=== PATIENT | male | born 1955 | race Caucasian/White ===

== ENCOUNTER 2020-06-08 12:24 | Outpatient (REF) | payer OTHER, SELFPAY ==
[2020-06-08 12:52] LABS: COVID-19 Test Positive (Negative)
== END 2020-06-08 12:25 | disposition home or self-care (01) ==
LOC: HO.LAB 12:24
PROVIDERS: Visit Provider Internal Medicine
DX: Z20.828 Contact with and (suspected) exposure to other viral communicable diseases (principal)
CPT/HCPCS: 87635

== ENCOUNTER 2020-06-22 10:20 | Outpatient (REF) | payer OTHER, SELFPAY | END 2020-06-22 10:21 | disposition home or self-care (01) | LOC: HO.LAB 10:20 | PROVIDERS: Visit Provider Internal Medicine | DX: Z20.828 Contact with and (suspected) exposure to other viral communicable diseases (principal) | CPT/HCPCS: 87635 ==

== ENCOUNTER 2020-07-27 11:23 | Outpatient (REF) | payer OTHER, SELFPAY | END 2020-07-27 11:24 | disposition home or self-care (01) | LOC: HO.LAB 11:23 | PROVIDERS: Visit Provider Internal Medicine | DX: Z20.828 Contact with and (suspected) exposure to other viral communicable diseases (principal) | CPT/HCPCS: C9803; U0003 ==

== ENCOUNTER 2021-09-16 06:53 | Inpatient (IN) | payer OTHER, SELFPAY ==
[2021-09-16] VITALS (14 sets, daily range): BP systolic 139–181; BP diastolic 76–107; PULSE 56–84; RESP 13–18; TEMP 36.8–37.2; O2SAT 95–100; BMI 27.4; BMI 29.8
--- NOTE | ~2021-09-16 | XR_ITS ---
EXAMINATION: XR CHEST CLINICAL INFORMATION: Right-sided chest pain COMPARISON: None TECHNIQUE: Frontal view of the chest was obtained. FINDINGS: The cardiac and mediastinal contours are normal. The lungs are clear. There is no pleural effusion or pneumothorax. There are surgical tacks or anchors projecting over the right humeral head. Bony structures are otherwise unremarkable. XR/XR chest 1V IMPRESSION: No evidence for acute disease in the chest.
--- NOTE | 2021-09-16 07:08 | ECG_ITS ---
Test Reason : chest pain Blood Pressure : / mmHG Vent. Rate : 053 BPM Atrial Rate : 053 BPM P-R Int : 186 ms QRS Dur : 086 ms QT Int : 402 ms P-R-T Axes : 041 -02 060 degrees QTc Int : 377 ms Sinus bradycardia Otherwise normal ECG When compared with ECG of 16-SEP-2021 07:11, No significant change was found Referred By: [facility] Electronically Signed By:DELICIA MEZA MD
[2021-09-16 07:31] LABS: MANUAL DIFF FLAG NO
[2021-09-16 07:36] LABS: Basophils Percent Auto 0.5 % (0-2); Eosinophils Absolute Auto 0.1 X10*3/uL (0.0-0.4); Eosinophils Percent Auto 1.1 % (0-4); Hematocrit 39.3 % (42.0-52.0); Hemoglobin 12.5 g/dl (14.0-18.0); Imm Gran Abs Auto 0.03 X10*3/uL (0.00-0.03); Imm Gran Pct Auto 0.4 % (0.0-0.4); Lymphocytes Absolute Auto 1.1 X10*3/uL (1.2-4.9); Lymphocytes Percent Auto 12.4 % (20-40); Mean Corpuscular HGB Conc 31.8 g/dl (31.0-36.0); Mean Corpuscular Hemoglobin 28.3 pg (27.0-33.0); Mean Corpuscular Volume 89.1 fL (80.0-98.0); Mean Platelet Volume 10.8 fL (9.4-12.4); Monocytes Absolute Auto 0.3 X10*3/uL (0.1-1.2); Monocytes Percent Auto 3.8 % (2-11); Neutrophils Absolute Auto 6.9 x10*3/uL (2.0-8.3); Neutrophils Percent Auto 81.8 % (45-73); Platelet Count 195 X10*3/uL (160-400); Red Blood Count 4.41 X10*6/uL (4.60-5.80); White Blood Count 8.4 X10*3/uL (4.8-10.8)
--- NOTE | 2021-09-16 07:46 | ED_ITS ---
HPI - Chest Pain General Chief Complaint: Chest Pain Stated Complaint: Headaches/body pain Time Seen by Provider: 09/16/21 07:46 Source: patient Mode of arrival: ambulatory Limitations: no limitations History of Present Illness HPI narrative: Patient with no known coronary artery disease at [facility] in came as he woke up from sleep at 04:00 with right-sided chest pain radiating to right arm feels heavy and tight no diaphoresis no nausea no vomiting no shortness of breath no cough patient never had similar pain in the past pain is coming and going Related Data Home Medications Medication Instructions Recorded Confirmed ascorbic acid (vitamin C) 500 mg 500 mg PO DAILY 09/16/21 09/16/21 tablet Allergies Allergy/AdvReac Type Severity Reaction Status Date / Time No Known Allergies Allergy Unverified 05/12/20 19:53 [No Known Allergies*] Review of Systems Review of Systems: Yes all other systems are reviewed and are negative [facility] Past Medical History Medical History (Updated 09/16/21 @ 14:50 by Jesús Almaraz MD) Depression with anxiety GERD (gastroesophageal reflux disease) Social History Social History Alcohol intake: current Patient Tobacco Use Status: Never used Tobacco Use of substances other than those prescribed or required for medical reasons: No Advance Directives: No Advance Directives Information Provided: No Physical Exam Vital Signs: Vital Signs: Last Vital Signs Temp 98.4 F 09/16/21 07:02 Pulse 84 09/16/21 11:59 Resp 18 09/16/21 11:59 BP 155/89 H 09/16/21 11:59 Pulse Ox 98 09/16/21 11:59 BMI result Body Mass Index 29.8 Appearance: Alert. Oriented X3. No acute distress. Eyes: No pallor or icterus ENT: Pharynx normal. Oral Mucosa moist Neck: Normal inspection. Neck supple. CVS: Normal heart rate and rhythm. Pulses normal. Respiratory: No respiratory distress. Equal air entry bilateral, no wheezing/rales/rhonchi Abdomen: Soft and nontender. Bowel sounds are present, no mass palpable, Skin: Skin warm and dry. Normal skin color. Normal skin turgor. Extremities: No lower extremity edema. No calf tenderness Neuro: Oriented X 3. No motor deficit. MDM - Chest Pain MDM Narrative Medical decision making narrative: 830am patient with right-sided chest pain with no acute EKG changes on arrival patient's blood pressure was elevated to 177/107 with no prior history. Patient was given nitroglycerin and Lopressor feeling much better now had elevated troponin will start on heparin 11:08 patient chest pain-free repeat troponin elevated to 2307 already on heparin drip repeat EKG without any acute ischemic changes case discussed with food service coordinator Dr. Chou will evaluate the patient and decide Lab Data Attestation: I reviewed the patient's lab results. Result diagrams: 09/16/21 07:26 09/16/21 14:19 Labs: Lab Results 09/16/21 09/16/21 09/16/21 Range/Units 07:26 07:26 07:26 WBC 8.4 (4.8-10.8) X10*3/uL RBC 4.41 L (4.60-5.80) X10*6/uL Hgb 12.5 L (14.0-18.0) g/dl Hct 39.3 L (42.0-52.0) % MCV 89.1 (80.0-98.0) fL MCH 28.3 (27.0-33.0) pg MCHC 31.8 (31.0-36.0) g/dl RDW 14.0 (11.0-16.0) % Plt Count 195 (160-400) X10*3/uL MPV 10.8 (9.4-12.4) fL Immature Gran % (Auto) 0.4 (0.0-0.4) % Neut % (Auto) 81.8 H (45-73) % Lymph % (Auto) 12.4 L (20-40) % Louisa % (Auto) 3.8 (2-11) % Eos % (Auto) 1.1 (0-4) % Baso % (Auto) 0.5 (0-2) % Lymph # (Auto) 1.1 L (1.2-4.9) X10*3/uL Louisa # (Auto) 0.3 (0.1-1.2) X10*3/uL Eos # (Auto) 0.1 (0.0-0.4) X10*3/uL Baso # (Auto) 0.0 (0.0-0.2) X10*3/uL Abs Immat Gran (auto) 0.03 (0.00-0.03) X10*3/uL Absolute Neuts (auto) 6.9 (2.0-8.3) x10*3/uL Absolute Nucleated RBC 0.000 (0.0-0.012) X10*3/uL Nucleated RBC % (auto) 0.0 (0.0-0.2) /100WBC PT (9.9-13.0) SEC INR (0.9-1.1) APTT (24.1-38.0) SEC D-Dimer High Sensitivty NG/ML Sodium 141 (135-145) mmol/L Potassium 4.1 (3.3-5.1) mmol/L Chloride 106 (96-108) mmol/L Carbon Dioxide 26 (22-29) mmol/L Anion Gap 13 (12-20) BUN 14 (9-16) mg/dL Creatinine 0.90 (0.5-1.4) mg/dL Estim Creat Clear Calc 77.8 Estimated GFR > 60 Random Glucose 117 H (60-115) mg/dL Calcium 9.4 (8.4-10.2) mg/dL Total Bilirubin 0.5 (0.0-1.0) mg/dL AST 31 (5-37) U/L ALT 41 H (0-40) U/L Alkaline Phosphatase 66 (39-117) U/L Troponin I High Sens 117.1 H* (<3.5-35.0) ng/L B-Natriuretic Peptide (<100) pg/mL Total Protein 7.5 (6.5-8.0) g/dL Albumin 4.4 (3.5-5.0) g/dL COVID-19 (OBI) (Negative) COVID-19 Clin Com 09/16/21 09/16/21 09/16/21 Range/Units 07:26 07:26 08:19 WBC (4.8-10.8) X10*3/uL RBC (4.60-5.80) X10*6/uL Hgb (14.0-18.0) g/dl Hct (42.0-52.0) % MCV (80.0-98.0) fL MCH (27.0-33.0) pg MCHC (31.0-36.0) g/dl RDW (11.0-16.0) % Plt Count (160-400) X10*3/uL MPV (9.4-12.4) fL Immature Gran % (Auto) (0.0-0.4) % Neut % (Auto) (45-73) % Lymph % (Auto) (20-40) % Louisa % (Auto) (2-11) % Eos % (Auto) (0-4) % Baso % (Auto) (0-2) % Lymph # (Auto) (1.2-4.9) X10*3/uL Louisa # (Auto) (0.1-1.2) X10*3/uL Eos # (Auto) (0.0-0.4) X10*3/uL Baso # (Auto) (0.0-0.2) X10*3/uL Abs Immat Gran (auto) (0.00-0.03) X10*3/uL Absolute Neuts (auto) (2.0-8.3) x10*3/uL Absolute Nucleated RBC (0.0-0.012) X10*3/uL Nucleated RBC % (auto) (0.0-0.2) /100WBC PT 11.4 (9.9-13.0) SEC INR 1.0 (0.9-1.1) APTT 31.6 (24.1-38.0) SEC D-Dimer High Sensitivty < 150 NG/ML Sodium (135-145) mmol/L Potassium (3.3-5.1) mmol/L Chloride (96-108) mmol/L Carbon Dioxide (22-29) mmol/L Anion Gap (12-20) BUN (9-16) mg/dL Creatinine (0.5-1.4) mg/dL Estim Creat Clear Calc Estimated GFR Random Glucose (60-115) mg/dL Calcium (8.4-10.2) mg/dL Total Bilirubin (0.0-1.0) mg/dL AST (5-37) U/L ALT (0-40) U/L Alkaline Phosphatase (39-117) U/L Troponin I High Sens (<3.5-35.0) ng/L B-Natriuretic Peptide 19 (<100) pg/mL Total Protein (6.5-8.0) g/dL Albumin (3.5-5.0) g/dL COVID-19 (OBI) Negative (Negative) COVID-19 Clin Com See Note 09/16/21 Range/Units 10:15 WBC (4.8-10.8) X10*3/uL RBC (4.60-5.80) X10*6/uL Hgb (14.0-18.0) g/dl Hct (42.0-52.0) % MCV (80.0-98.0) fL MCH (27.0-33.0) pg MCHC (31.0-36.0) g/dl RDW (11.0-16.0) % Plt Count (160-400) X10*3/uL MPV (9.4-12.4) fL Immature Gran % (Auto) (0.0-0.4) % Neut % (Auto) (45-73) % Lymph % (Auto) (20-40) % Louis[place] % (Auto) (2-11) % Eos % (Auto) (0-4) % Baso % (Auto) (0-2) % Lymph # (Auto) (1.2-4.9) X10*3/uL [place] # (Auto) (0.1-1.2) X10*3/uL Eos # (Auto) (0.0-0.4) X10*3/uL Baso # (Auto) (0.0-0.2) X10*3/uL Abs Immat Gran (auto) (0.00-0.03) X10*3/uL Absolute Neuts (auto) (2.0-8.3) x10*3/uL Absolute Nucleated RBC (0.0-0.012) X10*3/uL Nucleated RBC % (auto) (0.0-0.2) /100WBC PT (9.9-13.0) SEC INR (0.9-1.1) APTT (24.1-38.0) SEC D-Dimer High Sensitivty NG/ML Sodium (135-145) mmol/L Potassium (3.3-5.1) mmol/L Chloride (96-108) mmol/L Carbon Dioxide (22-29) mmol/L Anion Gap (12-20) BUN (9-16) mg/dL Creatinine (0.5-1.4) mg/dL Estim Creat Clear Calc Estimated GFR Random Glucose (60-115) mg/dL Calcium (8.4-10.2) mg/dL Total Bilirubin (0.0-1.0) mg/dL AST (5-37) U/L ALT (0-40) U/L Alkaline Phosphatase (39-117) U/L Troponin I High Sens 2307.2 H* D (<3.5-35.0) ng/L B-Natriuretic Peptide (<100) pg/mL Total Protein (6.5-8.0) g/dL Albumin (3.5-5.0) g/dL COVID-19 (OBI) (Negative) COVID-19 Clin Com ECG Data ECG #1: Attestation: I personally reviewed and interpreted this ECG as follows: Interpretation: Normal sinus rhythm heart rate 73 beats per minute normal interval normal axis no acute STT wave changes no acute ischemia Critical Care Time Critical Care Time Critical Care Time: Yes Total Critical Care Time: 38 Attestation: I spent 38 minutes of critical care, with interventions, assessments, speaking to patient, consultants, and family. Discharge Plan Discharge Clinical Impression: NSTEMI (non-ST elevated myocardial infarction) Patient Disposition: Admitted As Inpatient
[2021-09-16 07:53] LABS: Alanine Aminotransferase 41 U/L (0-40); Albumin Level 4.4 g/dL (3.5-5.0); Alkaline Phosphatase 66 U/L (39-117); Anion Gap 13 (12-20); Aspartate Amino Transferase 31 U/L (5-37); Bilirubin Total 0.5 mg/dL (0.0-1.0); Blood Urea Nitrogen 14 mg/dL (9-16); Calcium 9.4 mg/dL (8.4-10.2); Carbon Dioxide 26 mmol/L (22-29); Chloride 106 mmol/L (96-108); Creatinine Clr Calc Pharmacy 77.8; Estimated Glomerular Filt Rate > 60; Glucose Random 117 mg/dL (60-115); Potassium 4.1 mmol/L (3.3-5.1); Sodium 141 mmol/L (135-145); Total Protein 7.5 g/dL (6.5-8.0)
[2021-09-16 07:58] LABS: B Type Natriuretic Peptide 19 pg/mL (<100)
[2021-09-16 08:07] LABS: Troponin-I High Sensitivity 117.1 ng/L (<3.5-35.0)
[2021-09-16] MEDS: Metoprolol Tartrate 5 MG/5 ML VIAL IVPUSH (08:24)
[2021-09-16] MEDS: Aspirin 81 MG TAB.CHEW 324 MG PO (08:24)
--- NOTE | 2021-09-16 08:27 | PC.NURSE ---
resting quietly. den ies CP at this time. SR on monitopr. no ectopy. skin pwd. denies SOB/diaphoresis, dizziness at home. also denies hx of HTN or need for HTN meds.
[2021-09-16 08:33] LABS: Prothrombin Time 11.4 SEC (9.9-13.0)
[2021-09-16 08:35] LABS: Partial Thromboplastin Time 31.6 SEC (24.1-38.0)
[2021-09-16] MEDS: Nitroglycerin 2 % Oint 1 GM Packet 1 INCH TRANSDERMA (08:35)
[2021-09-16 08:52] LABS: D Dimer High Sensitivity < 150 NG/ML
[2021-09-16] MEDS: Heparin Sodium,Porcine 5,000 UNIT/ML VIAL 5000 UNIT IVPUSH (09:06)
--- NOTE | 2021-09-16 09:08 | PC.NURSE ---
reports diminishing CP and slight headache. axox3. skin pwd. nsr on monitor
[2021-09-16] MEDS: Heparin Sodium,Porcine/1/2NS 25,000 UNIT/250 ML IV.SOLN 10 UNIT IVCONT (09:20)
[2021-09-16] MEDS: Nitroglycerin 0.4 MG TAB.SUBL SUBLINGUAL (09:23)
[2021-09-16 09:32] LABS: COVID-19 Test Negative (Negative)
--- NOTE | 2021-09-16 09:59 | PC.NURSE ---
pt denies cp, continues to have small headache. skin pwd. aware of need for admission. nsr on monitor.
--- NOTE | 2021-09-16 11:04 | ECG_ITS ---
Test Reason : CHESTPAIN Blood Pressure : / mmHG Vent. Rate : 073 BPM Atrial Rate : 073 BPM P-R Int : 168 ms QRS Dur : 094 ms QT Int : 366 ms P-R-T Axes : 052 002 039 degrees QTc Int : 403 ms Normal sinus rhythm Normal ECG No previous ECGs available Referred By: Gary Bhatia Electronically Signed By:Gelacio Chou
--- NOTE | 2021-09-16 11:14 | PC.NURSE ---
doc andrew at bedside. pt continues to denies CP. SB on monitor at this time. no ectopy
--- NOTE | 2021-09-16 11:17 | PC.NURSE ---
plan for admission and eventual transfer to [facility] for cardiac cath early next week.
[2021-09-16] MEDS: Metoprolol Tartrate 25 MG TABLET PO ×2 (11:57→20:57)
[2021-09-16] MEDS: Acetaminophen 325 MG TABLET 650 MG PO (11:57)
[2021-09-16] MEDS: Clopidogrel Bisulfate 300 MG TABLET PO (11:58)
--- NOTE | 2021-09-16 12:08 | PHA.MEDREC ---
Pharmacy Consult ? Medication Reconciliation Pharmacy has completed the medication reconciliation. Spoke with patient via block mechanic. He stated he used to take medication for cholesterol and acid reflux but does not anymore. He states he only takes Vitamin C. He is not taking bupropion or any other medications because he does not believe he has any illnesses.
--- NOTE | 2021-09-16 13:24 | PM.IMHP ---
History of Present Illness Date of Service: 09/16/21 Chief Complaint: Chest pain 66 year male with no known chronic illnesses such as HTN, diabetes or CAD. He has HLD and takes Simvastatin. He woke up around 4 am with excruciating right sided chest pain, radiating to the right shoulder. No associated shortness of breath, no n/v or daphoressis and persisted until arrived in ED. work ECG showed no acute changes, initial troponin was 117 and repeat was 2017. Pain has improved with after nitor but now has headache. He is medically being treated with ASA, heparin, metoprolol and cardiology will arrange for cardach cath at a later time. He is otherwise hemodynamically stable. Vaccinated for covid. Review of Systems Review of Systems: Gen: no fever Resp: no sob, no cough CV: no chest, no BELLE, no leg edema GI: No n/v, no abd pain Neuro: No confusion, headache Yes all other systems are reviewed and are negative [facility] Medical History (Updated 09/16/21 @ 13:32 by Gary Bhatia MD) Depression with anxiety GERD (gastroesophageal reflux disease) Pertinent family history: He reports no family of CAD Social History Alcohol intake: current Patient Tobacco Use Status: Never used Tobacco Use of substances other than those prescribed or required for medical reasons: No Advance Directives: No Advance Directives Information Provided: No Meds Allergies Allergy/AdvReac Type Severity Reaction Status Date / Time No Known Allergies Allergy Unverified 05/12/20 19:53 [No Known Allergies*] Active Medications: Current Medications Heparin Sodium (Porcine) (Heparin Sodium,Porcine 5,000 Unit/Ml Vial) 6,700 unit IVPUSH PROTOCOL BOLUS PRN; Protocol PRN Reason: 80 unit/kg - Heparin Protocol Heparin Sodium (Porcine) (Heparin Sodium,Porcine 5,000 Unit/Ml Vial) 3,400 unit IVPUSH PROTOCOL BOLUS PRN; Protocol PRN Reason: 40 unit/kg - Heparin Protocol Heparin Sodium/Sodium Chloride () 25,000 unit in 250 mls @ 0 mls/hr IVCONT .Q0M [facility]; Protocol Last Admin: 09/16/21 09:20 Dose: 12.97 units/kg/hr, 10 mls/hr Documented by: Pharmacy Consult (Consult Rx Perform Med Rec) 1 each MISCELLANE ONCE PRN PRN Reason: Consult order Home Medications Medication Instructions Recorded Confirmed Last Taken Type ascorbic acid (vitamin C) 500 mg 500 mg PO DAILY 09/16/21 09/16/21 Unknown History tablet Physical Exam Vital Signs and Narrative: Vital Signs: Last Vital Signs Temp 98.4 F 09/16/21 07:02 Pulse 84 09/16/21 11:59 Resp 18 09/16/21 11:59 BP 155/89 H 09/16/21 11:59 Pulse Ox 98 09/16/21 11:59 BMI result Body Mass Index 29.8 Results Labs CBC and Chem 7: 09/16/21 07:26 09/16/21 07:26 Labs: Laboratory Results - last 24 hr 09/16/21 09/16/21 09/16/21 07:26 07:26 07:26 MCV 89.1 MCH 28.3 MCHC 31.8 RDW 14.0 Plt Count 195 MPV 10.8 Immature Gran % (Auto) 0.4 Neut % (Auto) 81.8 H Lymph % (Auto) 12.4 L Payne % (Auto) 3.8 Eos % (Auto) 1.1 Baso % (Auto) 0.5 Lymph # (Auto) 1.1 L Payne # (Auto) 0.3 Eos # (Auto) 0.1 Baso # (Auto) 0.0 Abs Immat Gran (auto) 0.03 Absolute Neuts (auto) 6.9 Absolute Nucleated RBC 0.000 Nucleated RBC % (auto) 0.0 PT INR APTT D-Dimer High Sensitivty Anion Gap 13 Estim Creat Clear Calc 77.8 Estimated GFR > 60 Random Glucose 117 H Calcium 9.4 Total Bilirubin 0.5 AST 31 ALT 41 H Alkaline Phosphatase 66 Troponin I High Sens 117.1 H* B-Natriuretic Peptide Total Protein 7.5 Albumin 4.4 COVID-19 (OBI) COVID-19 Clin Com 09/16/21 09/16/21 09/16/21 07:26 07:26 08:19 MCV MCH MCHC RDW Plt Count MPV Immature Gran % (Auto) Neut % (Auto) Lymph % (Auto) Payne % (Auto) Eos % (Auto) Baso % (Auto) Lymph # (Auto) Payne # (Auto) Eos # (Auto) Baso # (Auto) Abs Immat Gran (auto) Absolute Neuts (auto) Absolute Nucleated RBC Nucleated RBC % (auto) PT 11.4 INR 1.0 APTT 31.6 D-Dimer High Sensitivty < 150 Anion Gap Estim Creat Clear Calc Estimated GFR Random Glucose Calcium Total Bilirubin AST ALT Alkaline Phosphatase Troponin I High Sens B-Natriuretic Peptide 19 Total Protein Albumin COVID-19 (OBI) Negative COVID-19 Clin Com See Note 09/16/21 10:15 MCV MCH MCHC RDW Plt Count MPV Immature Gran % (Auto) Neut % (Auto) Lymph % (Auto) Payne % (Auto) Eos % (Auto) Baso % (Auto) Lymph # (Auto) Payne # (Auto) Eos # (Auto) Baso # (Auto) Abs Immat Gran (auto) Absolute Neuts (auto) Absolute Nucleated RBC Nucleated RBC % (auto) PT INR APTT D-Dimer High Sensitivty Anion Gap Estim Creat Clear Calc Estimated GFR Random Glucose Calcium Total Bilirubin AST ALT Alkaline Phosphatase Troponin I High Sens 2307.2 H* D B-Natriuretic Peptide Total Protein Albumin COVID-19 (OBI) COVID-19 Clin Com Imaging Radiologist's Impressions: Impressions Chest X-Ray 09/16/21 09:50 IMPRESSION: No evidence for acute disease in the chest. Assessment and Plan (1) NSTEMI (non-ST elevated myocardial infarction): Status: Acute 66 year old male with HLD here with NSTEMI manifested by chest pain and elevated cardiac troponin. NSTEMI--Medical management with IV heparin, ASA, Beta yo, stain and BP control. Further investingation with echo on Saturday and likely transfer to [facility] for cardiac cath. Headache likely effect of Nitro--APAP HLD--previously on Simvastatin and will change to Lipitor 80 GERD--continue omeprazol Full code, heparin for DVT prophylaxis, care discussed with him via emergency department clinician Quality Stroke Does the patient have a stroke diagnosis?: No VTE Prior VTE?: No VTE Risk Level:: Medical - moderate - high VTE Device Contraindication: Treatment Not Indicated VTE Drug Contraindication: N/A - Med Ordered
[2021-09-16 14:43] LABS: Anion Gap 12 (12-20); Blood Urea Nitrogen 15 mg/dL (9-16); Calcium 9.4 mg/dL (8.4-10.2); Carbon Dioxide 26 mmol/L (22-29); Chloride 106 mmol/L (96-108); Cholesterol 230 mg/dL; Creatinine Clr Calc Pharmacy 82.7; Estimated Glomerular Filt Rate > 60; Glucose Random 137 mg/dL (60-115); HDL Cholesterol 43 mg/dL; LDL Cholesterol Calculated 166 mg/dl; Potassium 4.6 mmol/L (3.3-5.1); Sodium 139 mmol/L (135-145); Triglycerides 108 mg/dL
[2021-09-16 15:33] LABS: PTT Heparin Drip 78.9 SEC (53-77.9)
[2021-09-16 15:49] LABS: Hematocrit 35.1 % (42.0-52.0); Hemoglobin 11.5 g/dl (14.0-18.0); Mean Corpuscular HGB Conc 32.8 g/dl (31.0-36.0); Mean Corpuscular Volume 88.6 fL (80.0-98.0); Mean Platelet Volume 11.3 fL (9.4-12.4); Platelet Count 195 X10*3/uL (160-400); Red Blood Count 3.96 X10*6/uL (4.60-5.80); Red Cell Distribution Width 14.1 % (11.0-16.0)
--- NOTE | 2021-09-16 15:52 | PC.NURSE ---
pt continues to denie CP. headache persists. skin pwd.
--- NOTE | 2021-09-16 16:07 | ECG_ITS ---
Test Reason : elevated trop Blood Pressure : / mmHG Vent. Rate : 057 BPM Atrial Rate : 057 BPM P-R Int : 184 ms QRS Dur : 086 ms QT Int : 402 ms P-R-T Axes : 039 012 081 degrees QTc Int : 391 ms Sinus bradycardia Otherwise normal ECG When compared with ECG of 16-SEP-2021 07:11, No significant change was found Referred By: Gary Jackson Electronically Signed By:Gelacio Chou
--- NOTE | 2021-09-16 16:47 | P.CONCA_ITS ---
History of Present Illness History of Present Illness Date of Service: 09/16/21 Requesting physician: Jesús Almaraz Chief complaint: NSTEMI Narrative: Pleasant 66 gentleman who is presenting with chest pain. He had pressure-like right-sided chest pain and back discomfort which happen at nighttime. He has not had similar chest pain before. With this symptom sent to [facility]. He ruled in for NSTEMI. He was pain-free at the time he was seen. 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 No bleeding issues previously. Was started on heparin drip already. Was given aspirin already. No diabetes or bleeding issues in the past. [facility] Past Medical History Medical History (Updated 09/16/21 @ 14:50 by Jesús Almaraz MD) Depression with anxiety GERD (gastroesophageal reflux disease) Social History Social History Alcohol intake: current Patient Tobacco Use Status: Never used Tobacco Use of substances other than those prescribed or required for medical reasons: No Advance Directives: No Advance Directives Information Provided: No Meds Allergies Allergy/AdvReac Type Severity Reaction Status Date / Time No Known Allergies Allergy Unverified 05/12/20 19:53 [No Known Allergies*] Active Medications: Current Medications Acetaminophen (Acetaminophen 325 Mg Tablet) 650 mg PO Q6H PRN PRN Reason: Pain, Mild (Pain Scale 1-3) Ascorbic Acid (Ascorbic Acid 500 Mg Tablet) 500 mg PO DAILY [facility] Aspirin (Aspirin 81 Mg Tab.Chew) 81 mg PO DAILY [facility] Atorvastatin Calcium (Atorvastatin Calcium 80 Mg Tablet) 80 mg PO BEDTIME [facility] Heparin Sodium (Porcine) (Heparin Sodium,Porcine 5,000 Unit/Ml Vial) 6,700 unit IVPUSH PROTOCOL BOLUS PRN; Protocol PRN Reason: 80 unit/kg - Heparin Protocol Heparin Sodium (Porcine) (Heparin Sodium,Porcine 5,000 Unit/Ml Vial) 3,400 unit IVPUSH PROTOCOL BOLUS PRN; Protocol PRN Reason: 40 unit/kg - Heparin Protocol Heparin Sodium/Sodium Chloride () 25,000 unit in 250 mls @ 0 mls/hr IVCONT .Q0M [facility]; Protocol Last Titration: 09/16/21 15:46 Dose: 10.97 units/kg/hr, 9.21 mls/hr Documented by: Magnesium Hydroxide (Milk Of Magnesia 30 Ml Oral.Susp) 30 ml PO DAILY PRN PRN Reason: Constipation Melatonin (Melatonin 3 Mg Tablet) 6 mg PO BEDTIME PRN PRN Reason: Insomnia Metoprolol Tartrate (Metoprolol Tartrate 25 Mg Tablet) 25 mg PO BID NITHYA; Prot ocol Ondansetron HCl (Ondansetron Hcl 4 Mg/2 Ml Vial) 4 mg IVPUSH Q8H PRN PRN Reason: Nausea and Vomiting Oxycodone HCl (Oxycodone Hcl Immed Release 5 Mg Tablet) 5 mg PO Q6H PRN PRN Reason: Pain, Severe (Pain Scale 7-10) Pharmacy Consult (Consult Rx Perform Med Rec) 1 each MISCELLANE ONCE PRN PRN Reason: Consult order Sodium Chloride (0.9 % Sodium Chloride Flush 3 Ml Syringe) 3 ml IVFLUSH QSHIFT [facility] Last Admin: 09/16/21 15:43 Dose: Not Given Documented by: Home Medications Medication Instructions Recorded Confirmed Last Taken Type ascorbic acid (vitamin C) 500 mg 500 mg PO DAILY 09/16/21 09/16/21 Unknown History tablet Physical Exam Vital Signs: Vital Signs: Last Vital Signs Temp 98.4 F 09/16/21 15:19 Pulse 68 09/16/21 15:19 Resp 17 09/16/21 15:19 BP 139/85 09/16/21 15:19 Pulse Ox 98 09/16/21 15:19 BMI result Body Mass Index 29.8 GENERAL APPEARANCE: in no acute distress, pleasant. NECK: no carotid bruit, no jugular venous distention. SKIN: no suspicious lesions, warm and dry. HEART: no murmurs, regular rate and rhythm. LUNGS: clear to auscultation bilaterally. ABDOMEN: soft, nontender. EXTREMITIES: no edema. PERIPHERAL PULSES: equal. NEUROLOGIC: No gross deficits, AAO X 3 Objective Labs and Meds Result diagrams: 09/16/21 15:18 09/16/21 14:19 Lab results: Laboratory Results - last 24 hr 09/16/21 09/16/21 09/16/21 07:26 07:26 07:26 WBC 8.4 RBC 4.41 L Hgb 12.5 L Hct 39.3 L MCV 89.1 MCH 28.3 MCHC 31.8 RDW 14.0 Plt Count 195 MPV 10.8 Immature Gran % (Auto) 0.4 Neut % (Auto) 81.8 H Lymph % (Auto) 12.4 L [place] % (Auto) 3.8 Eos % (Auto) 1.1 Baso % (Auto) 0.5 Lymph # (Auto) 1.1 L [place] # (Auto) 0.3 Eos # (Auto) 0.1 Baso # (Auto) 0.0 Abs Immat Gran (auto) 0.03 Absolute Neuts (auto) 6.9 Absolute Nucleated RBC 0.000 Nucleated RBC % (auto) 0.0 PT INR APTT PTT (Heparin Protocol) D-Dimer High Sensitivty Sodium 141 Potassium 4.1 Chloride 106 Carbon Dioxide 26 Anion Gap 13 BUN 14 Creatinine 0.90 Estim Creat Clear Calc 77.8 Estimated GFR > 60 Random Glucose 117 H Calcium 9.4 Total Bilirubin 0.5 AST 31 ALT 41 H Alkaline Phosphatase 66 Troponin I High Sens 117.1 H* B-Natriuretic Peptide Total Protein 7.5 Albumin 4.4 Triglycerides Cholesterol LDL Cholesterol, Calc HDL Cholesterol COVID-19 (OBI) COVID-19 Clin Com 09/16/21 09/16/21 09/16/21 07:26 07:26 08:19 WBC RBC Hgb Hct MCV MCH MCHC RDW Plt Count MPV Immature Gran % (Auto) Neut % (Auto) Lymph % (Auto) [place] % (Auto) Eos % (Auto) Baso % (Auto) Lymph # (Auto) [place] # (Auto) Eos # (Auto) Baso # (Auto) Abs Immat Gran (auto) Absolute Neuts (auto) Absolute Nucleated RBC Nucleated RBC % (auto) PT 11.4 INR 1.0 APTT 31.6 PTT (Heparin Protocol) D-Dimer High Sensitivty < 150 Sodium Potassium Chloride Carbon Dioxide Anion Gap BUN Creatinine Estim Creat Clear Calc Estimated GFR Random Glucose Calcium Total Bilirubin AST ALT Alkaline Phosphatase Troponin I High Sens B-Natriuretic Peptide 19 Total Protein Albumin Triglycerides Cholesterol LDL Cholesterol, Calc HDL Cholesterol COVID-19 (OBI) Negative COVID-19 Clin Com See Note 09/16/21 09/16/21 09/16/21 10:15 14:19 14:19 WBC RBC Hgb Hct MCV MCH MCHC RDW Plt Count MPV Immature Gran % (Auto) Neut % (Auto) Lymph % (Auto) [place] % (Auto) Eos % (Auto) Baso % (Auto) Lymph # (Auto) [place] # (Auto) Eos # (Auto) Baso # (Auto) Abs Immat Gran (auto) Absolute Neuts (auto) Absolute Nucleated RBC Nucleated RBC % (auto) PT INR APTT PTT (Heparin Protocol) D-Dimer High Sensitivty Sodium 139 Potassium 4.6 Chloride 106 Carbon Dioxide 26 Anion Gap 12 BUN 15 Creatinine 0.88 Estim Creat Clear Calc 82.7 Estimated GFR > 60 Random Glucose 137 H Calcium 9.4 Total Bilirubin AST ALT Alkaline Phosphatase Troponin I High Sens 2307.2 H* D 93876.6 H* D B-Natriuretic Peptide Total Protein Albumin Triglycerides 108 Cholesterol 230 LDL Cholesterol, Calc 166 HDL Cholesterol 43 COVID-19 (OBI) COVID-19 Silent Communication 09/16/21 09/16/21 15:18 15:18 WBC 8.0 RBC 3.96 L Hgb 11.5 L Hct 35.1 L MCV 88.6 MCH 29.0 MCHC 32.8 RDW 14.1 Plt Count 195 MPV 11.3 Immature Gran % (Auto) Neut % (Auto) Lymph % (Auto) [place] % (Auto) Eos % (Auto) Baso % (Auto) Lymph # (Auto) [place] # (Auto) Eos # (Auto) Baso # (Auto) Abs Immat Gran (auto) Absolute Neuts (auto) Absolute Nucleated RBC 0.000 Nucleated RBC % (auto) 0.0 PT INR APTT PTT (Heparin Protocol) 78.9 H D-Dimer High Sensitivty Sodium Potassium Chloride Carbon Dioxide Anion Gap BUN Creatinine Estim Creat Clear Calc Estimated GFR Random Glucose Calcium Total Bilirubin AST ALT Alkaline Phosphatase Troponin I High Sens B-Natriuretic Peptide Total Protein Albumin Triglycerides Cholesterol LDL Cholesterol, Calc HDL Cholesterol COVID-19 (OBI) COVID-19 Clin Com Imaging Radiologist's impression: Impressions Chest X-Ray 09/16/21 09:50 IMPRESSION: No evidence for acute disease in the chest. Assessment and Plan (1) NSTEMI (non-ST elevated myocardial infarction): Status: Acute Pleasant 66 gentleman presenting with chest discomfort and NSTEMI. EKG is not showing any dynamic changes right now. He is chest pain-free. He has been started on aspirin and heparin drip. Please start him on metoprolol 25 mg twice a day. Also load him with Plavix 300 mg followed by 75 mg daily. We will transfer him to [facility] and catheterization him potentially on Saturday. If he developed any significant chest pain in the interim then he may need earlier transfer. He will need echocardiography on Saturday morning. Thank you for allowing me to participate in the care of your patient. Please feel free to contact me if you have any questions. Procedures Date of Service Date of Service: 09/16/21
[2021-09-16] MEDS: oxyCODONE HCl Immed Release 5 MG TABLET PO (19:25)
[2021-09-16] MEDS: Atorvastatin Calcium 80 MG TABLET PO (20:57)
[2021-09-16 22:12] LABS: PTT Heparin Drip 55.8 SEC (53-77.9)
[2021-09-16] MEDS: 0.9 % Sodium Chloride Flush 3 ML SYRINGE IVFLUSH (22:51)
[2021-09-17 01:54] LABS: PTT Heparin Drip 57.8 SEC (53-77.9)
[2021-09-17 03:24] VITALS: BP 133/83; PULSE 52; RESP 20; TEMP 37.1; O2SAT 96
--- NOTE | 2021-09-17 07:00 | ECG_ITS ---
Test Reason : nstemi Blood Pressure : / mmHG Vent. Rate : 046 BPM Atrial Rate : 046 BPM P-R Int : 172 ms QRS Dur : 092 ms QT Int : 434 ms P-R-T Axes : 034 007 104 degrees QTc Int : 379 ms Sinus bradycardia T wave abnormality, consider lateral ischemia Abnormal ECG When compared with ECG of 16-SEP-2021 16:06, Lateral T wave inversions present Referred By: Gary Bhatia Electronically Signed By:Gelacio Chou
[2021-09-17 08:02] VITALS: BP 172/85; PULSE 53; RESP 20; TEMP 36.1; O2SAT 96
[2021-09-17 08:12] LABS: Prothrombin Time 11.8 SEC (9.9-13.0)
[2021-09-17 08:15] LABS: PTT Heparin Drip 60.9 SEC (53-77.9)
--- NOTE | 2021-09-17 09:27 | P.PNIM_ITS ---
Subjective Subjective Date of Service: 09/17/21 Interval History: f/u on NSTEMI, no chest pain, hemodynamically stable. BP is high side Review of Systems Gen: no fever Resp: no sob, no cough CV: no chest, no BELLE, no leg edema GI: No n/v, no abd pain Neuro: No confusion, no more headache Physical Exam Vital Signs: Vital Signs: Last Vital Signs Temp 96.9 F 09/17/21 08:02 Pulse 53 09/17/21 08:02 Resp 20 09/17/21 08:02 BP 172/85 H 09/17/21 08:02 Pulse Ox 96 09/17/21 08:02 BMI result Body Mass Index 29.8 Const: Other: General: AO X 3, no acute distress Resp: CTA bilateral CVS: S1,S2,RRR GI: +BS, NT, no distention Skin: No rash Neuro: motor grossly intact Psych: appropriate affect Objective Data Active Medications Acetaminophen (Acetaminophen 325 Mg Tablet) 650 mg PO Q6H PRN PRN Reason: Pain, Mild (Pain Scale 1-3) Amlodipine Besylate (Amlodipine Besylate 2.5 Mg Tablet) 2.5 mg PO DAILY [facility]; Protocol Ascorbic Acid (Ascorbic Acid 500 Mg Tablet) 500 mg PO DAILY [facility] Aspirin (Aspirin 81 Mg Tab.Chew) 81 mg PO DAILY [facility] Atorvastatin Calcium (Atorvastatin Calcium 80 Mg Tablet) 80 mg PO BEDTIME [facility] Last Admin: 09/16/21 20:57 Dose: 80 mg Documented by: LIA Clopidogrel Bisulfate (Clopidogrel Bisulfate 75 Mg Tablet) 75 mg PO DAILY [facility] Heparin Sodium (Porcine) (Heparin Sodium,Porcine 5,000 Unit/Ml Vial) 6,700 unit IVPUSH PROTOCOL BOLUS PRN; Protocol PRN Reason: 80 unit/kg - Heparin Protocol Heparin Sodium (Porcine) (Heparin Sodium,Porcine 5,000 Unit/Ml Vial) 3,400 unit IVPUSH PROTOCOL BOLUS PRN; Protocol PRN Reason: 40 unit/kg - Heparin Protocol Heparin Sodium/Sodium Chloride () 25,000 unit in 250 mls @ 0 mls/hr IVCONT .Q0M [facility]; Protocol Last Titration: 09/17/21 02:12 Dose: 10.97 units/kg/hr, 9.21 mls/hr Documented by: LIA Cosigned by: TAVO Magnesium Hydroxide (Milk Of Magnesia 30 Ml Oral.Susp) 30 ml PO DAILY PRN PRN Reason: Constipation Melatonin (Melatonin 3 Mg Tablet) 6 mg PO BEDTIME PRN PRN Reason: Insomnia Metoprolol Tartrate (Metoprolol Tartrate 25 Mg Tablet) 25 mg PO BID [facility]; Protocol Last Admin: 09/16/21 20:57 Dose: 25 mg Documented by: LIA Ondansetron HCl (Ondansetron Hcl 4 Mg/2 Ml Vial) 4 mg IVPUSH Q8H PRN PRN Reason: Nausea and Vomiting Oxycodone HCl (Oxycodone Hcl Immed Release 5 Mg Tablet) 5 mg PO Q6H PRN PRN Reason: Pain, Severe (Pain Scale 7-10) Last Admin: 09/16/21 19:25 Dose: 5 mg Documented by: YULIA Pharmacy Consult (Consult Rx Perform Med Rec) 1 each MISCELLANE ONCE PRN PRN Reason: Consult order Sodium Chloride (0.9 % Sodium Chloride Flush 3 Ml Syringe) [facility] Last Admin: 09/16/21 22:51 Dose: 3 ml Documented by: LIA Labs CBC & Chem 7: 09/16/21 15:18 09/16/21 14:19 Labs: Laboratory Results - last 24 hr 09/16/21 09/16/21 09/16/21 07:26 10:15 14:19 MCV MCH MCHC RDW Plt Count MPV Absolute Nucleated RBC Nucleated RBC % (auto) PT INR PTT (Heparin Protocol) Anion Gap 12 Estim Creat Clear Calc 82.7 Estimated GFR > 60 Random Glucose 137 H Calcium 9.4 Troponin I High Sens 2307.2 H* D Triglycerides 108 Cholesterol 230 LDL Cholesterol, Calc 166 HDL Cholesterol 43 COVID-19 (OBI) Negative COVID-19 Clin Com See Note 09/16/21 09/16/21 09/16/21 14:19 15:18 15:18 MCV 88.6 MCH 29.0 MCHC 32.8 RDW 14.1 Plt Count 195 MPV 11.3 Absolute Nucleated RBC 0.000 Nucleated RBC % (auto) 0.0 PT INR PTT (Heparin Protocol) 78.9 H Anion Gap Estim Creat Clear Calc Estimated GFR Random Glucose Calcium Troponin I High Sens 28609.6 H* D Triglycerides Cholesterol LDL Cholesterol, Calc HDL Cholesterol COVID-19 (OBI) COVID-19 Clin Com 09/16/21 09/17/21 09/17/21 21:45 01:36 07:33 MCV MCH MCHC RDW Plt Count MPV Absolute Nucleated RBC Nucleated RBC % (auto) PT 11.8 INR 1.0 PTT (Heparin Protocol) 55.8 D 57.8 Anion Gap Estim Creat Clear Calc Estimated GFR Random Glucose Calcium Troponin I High Sens Triglycerides Cholesterol LDL Cholesterol, Calc HDL Cholesterol COVID-19 (OBI) COVID-19 Clin Com 09/17/21 07:33 MCV MCH MCHC RDW Plt Count MPV Absolute Nucleated RBC Nucleated RBC % (auto) PT INR PTT (Heparin Protocol) 60.9 Anion Gap Estim Creat Clear Calc Estimated GFR Random Glucose Calcium Troponin I High Sens Triglycerides Cholesterol LDL Cholesterol, Calc HDL Cholesterol COVID-19 (OBI) COVID-19 Clin Com Assessment and Plan (1) NSTEMI (non-ST elevated myocardial infarction): Status: Acute (2) HTN (hypertension): Status: Acute Assessment and Plan: ? ? 66 year old male with HLD here with NSTEMI manifested by chest pain and elevated cardiac troponin. NSTEMI--hemodynamically, repeat ECG unremarkable, no active pain -continue with IV heparin, ASA, metoprolol 25 bid, Lipitor 80 at bedtime, Plavix 75 daily (loaded with 300 on 09/16), eventually to be transfered to [facility] for cath. HTN--he likely has undiagnosed HTN--BP 170s -continue Metoprolol, Add Lisinopril 10 and if needed also add norvasc Headache likely effect of Nitro--APAP PRN, headache has resolved HLD--previously on Simvastatin and will change to Lipitor 80 GERD--continue omeprazole Full code, heparin for DVT prophylaxis, care discussed with him via staff interpreter Quality Stroke Does the patient have a stroke diagnosis?: No VTE Prior VTE?: No VTE Risk Level:: Medical - moderate - high VTE Device Contraindication: Treatment Not Indicated VTE Drug Contraindication: N/A - Med Ordered
[2021-09-17] MEDS: Aspirin 81 MG TAB.CHEW PO (10:45)
[2021-09-17] MEDS: Ascorbic Acid 500 MG TABLET PO (10:45)
[2021-09-17] MEDS: Famotidine 20 MG TABLET PO ×2 (10:46→19:44)
[2021-09-17] MEDS: lisinopriL 10 MG TABLET PO (10:46)
[2021-09-17] MEDS: Clopidogrel Bisulfate 75 MG TABLET PO (10:46)
[2021-09-17] MEDS: Metoprolol Tartrate 25 MG TABLET PO ×2 (10:46→19:44)
[2021-09-17] MEDS: Heparin Sodium,Porcine/1/2NS 25,000 UNIT/250 ML IV.SOLN 9.21 UNIT IVCONT (10:46)
--- NOTE | 2021-09-17 11:16 | PM.PNCARD ---
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 He has been pain-free and has no further chest pain. Blood pressure is elevated and lisinopril was added to his regimen today. Physical Exam Vital Signs: Last Vital Signs Temp 96.9 F 09/17/21 08:02 Pulse 53 09/17/21 08:02 Resp 20 09/17/21 08:02 BP 172/85 H 09/17/21 08:02 Pulse Ox 96 09/17/21 08:02 BMI result Body Mass Index 29.8 GENERAL APPEARANCE: in no acute distress, pleasant. NECK: no carotid bruit, no jugular venous distention. SKIN: no suspicious lesions, warm and dry. HEART: no murmurs, regular rate and rhythm. LUNGS: clear to auscultation bilaterally. ABDOMEN: soft, nontender. EXTREMITIES: no edema. PERIPHERAL PULSES: equal. NEUROLOGIC: No gross deficits, AAO X 3 Objective Labs and Meds Result diagrams: 09/16/21 15:18 09/16/21 14:19 Lab results: Laboratory Results - last 24 hr 09/16/21 09/16/21 09/16/21 14:19 14:19 15:18 WBC 8.0 RBC 3.96 L Hgb 11.5 L Hct 35.1 L MCV 88.6 MCH 29.0 MCHC 32.8 RDW 14.1 Plt Count 195 MPV 11.3 Absolute Nucleated RBC 0.000 Nucleated RBC % (auto) 0.0 PT INR PTT (Heparin Protocol) Sodium 139 Potassium 4.6 Chloride 106 Carbon Dioxide 26 Anion Gap 12 BUN 15 Creatinine 0.88 Estim Creat Clear Calc 82.7 Estimated GFR > 60 Random Glucose 137 H Calcium 9.4 Troponin I High Sens 01550.6 H* D Triglycerides 108 Cholesterol 230 LDL Cholesterol, Calc 166 HDL Cholesterol 43 09/16/21 09/16/21 09/17/21 15:18 21:45 01:36 WBC RBC Hgb Hct MCV MCH MCHC RDW Plt Count MPV Absolute Nucleated RBC Nucleated RBC % (auto) PT INR PTT (Heparin Protocol) 78.9 H 55.8 D 57.8 Sodium Potassium Chloride Carbon Dioxide Anion Gap BUN Creatinine Estim Creat Clear Calc Estimated GFR Random Glucose Calcium Troponin I High Sens Triglycerides Cholesterol LDL Cholesterol, Calc HDL Cholesterol 09/17/21 09/17/21 07:33 07:33 WBC RBC Hgb Hct MCV MCH MCHC RDW Plt Count MPV Absolute Nucleated RBC Nucleated RBC % (auto) PT 11.8 INR 1.0 PTT (Heparin Protocol) 60.9 Sodium Potassium Chloride Carbon Dioxide Anion Gap BUN Creatinine Estim Creat Clear Calc Estimated GFR Random Glucose Calcium Troponin I High Sens Triglycerides Cholesterol LDL Cholesterol, Calc HDL Cholesterol Progress Note: A&P Assessment and plan (1) HTN (hypertension): Status: Acute (2) NSTEMI (non-ST elevated myocardial infarction): Status: Acute Assessment and Plan: 66-year-old gentleman who is presenting with chest pain and NSTEMI. He has been on heparin drip, aspirin Plavix. Clinically stable at this point. Blood pressure is elevated and lisinopril was added to his regimen. Monitor blood pressure closely and titrate beta-yo and lisinopril. Will do echocardiography tomorrow and transferred to [facility] tomorrow for cardiac catheterization on Saturday. Thank you for allowing me to participate in the care of your patient. Please feel free to contact me if you have any questions. Fall Risk Details Current Medications: Current Medications Acetaminophen (Acetaminophen 325 Mg Tablet) 650 mg PO Q6H PRN PRN Reason: Pain, Mild (Pain Scale 1-3) Ascorbic Acid (Ascorbic Acid 500 Mg Tablet) 500 mg PO DAILY [facility] Last Admin: 09/17/21 10:45 Dose: 500 mg Documented by: Aspirin (Aspirin 81 Mg Tab.Chew) 81 mg PO DAILY [facility] Last Admin: 09/17/21 10:45 Dose: 81 mg Documented by: Atorvastatin Calcium (Atorvastatin Calcium 80 Mg Tablet) 80 mg PO BEDTIME [facility] Last Admin: 09/16/21 20:57 Dose: 80 mg Documented by: Clopidogrel Bisulfate (Clopidogrel Bisulfate 75 Mg Tablet) 75 mg PO DAILY [facility] Last Admin: 09/17/21 10:46 Dose: 75 mg Documented by: Famotidine (Famotidine 20 Mg Tablet) 20 mg PO BID [facility] Last Admin: 09/17/21 10:46 Dose: 20 mg Documented by: Heparin Sodium (Porcine) (Heparin Sodium,Porcine 5,000 Unit/Ml Vial) 6,700 unit IVPUSH PROTOCOL BOLUS PRN; Protocol PRN Reason: 80 unit/kg - Heparin Protocol Heparin Sodium (Porcine) (Heparin Sodium,Porcine 5,000 Unit/Ml Vial) 3,400 unit IVPUSH PROTOCOL BOLUS PRN; Protocol PRN Reason: 40 unit/kg - Heparin Protocol Heparin Sodium/Sodium Chloride () 25,000 unit in 250 mls @ 0 mls/hr IVCONT .Q0M [facility]; Protocol Last Titration: 09/17/21 10:49 Dose: 10.97 units/kg/hr, 9.21 mls/hr Documented by: Lisinopril (Lisinopril 10 Mg Tablet) 10 mg PO DAILY [facility]; Protocol Last Admin: 09/17/21 10:46 Dose: 10 mg Documented by: Magnesium Hydroxide (Milk Of Magnesia 30 Ml Oral.Susp) 30 ml PO DAILY PRN PRN Reason: Constipation Melatonin (Melatonin 3 Mg Tablet) 6 mg PO BEDTIME PRN PRN Reason: Insomnia Metoprolol Tartrate (Metoprolol Tartrate 25 Mg Tablet) 25 mg PO BID [facility]; Protocol Last Admin: 09/17/21 10:46 Dose: 25 mg Documented by: Ondansetron HCl (Ondansetron Hcl 4 Mg/2 Ml Vial) 4 mg IVPUSH Q8H PRN PRN Reason: Nausea and Vomiting Oxycodone HCl (Oxycodone Hcl Immed Release 5 Mg Tablet) 5 mg PO Q6H PRN PRN Reason: Pain, Severe (Pain Scale 7-10) Last Admin: 09/16/21 19:25 Dose: 5 mg Documented by: Pharmacy Consult (Consult Rx Perform Med Rec) 1 each MISCELLANE ONCE PRN PRN Reason: Consult order Sodium Chloride (0.9 % Sodium Chloride Flush 3 Ml Syringe) 3 ml IVFLUSH QSHIFT [facility] Last Admin: 09/17/21 10:47 Dose: Not Given Documented by: Time Spent With Patient Time: Total time spent is greater than 50% in coordination of care (as documented) at patient's floor/unit and/or counseling patient: Time with patient: 15 - 24 minutes Progress Note: Quality Stroke Does the patient have a stroke diagnosis?: No Procedures Date of Service Date of Service: 09/17/21
[2021-09-17 12:00] VITALS: BP 154/92; PULSE 55; RESP 18; TEMP 37; O2SAT 96
--- NOTE | 2021-09-17 13:30 | MHC.CM.PN ---
Interview conducted w/family: Daughter Sharon and grand daughter Eunice. Patient lives alone and per family, is fully independent, still drives, no equipment for functional needs and no VNA services. At time of D/C, call Sharon at number listed for transport.
[2021-09-17 14:48] LABS: PTT Heparin Drip 55.7 SEC (53-77.9)
[2021-09-17 15:14] VITALS: BP 127/78; PULSE 53; RESP 17; TEMP 37.1; O2SAT 96
[2021-09-17 19:15] VITALS: BP 134/79; PULSE 52; RESP 17; TEMP 36.8; O2SAT 97
[2021-09-17] MEDS: Atorvastatin Calcium 80 MG TABLET PO (19:44)
[2021-09-18] VITALS: BP 138/66; PULSE 52; RESP 17; TEMP 36.9; O2SAT 97
[2021-09-18] MEDS: 0.9 % Sodium Chloride Flush 3 ML SYRINGE IVFLUSH ×2 (00:06→07:37)
[2021-09-18 03:54] VITALS: BP 128/75; PULSE 52; RESP 18; TEMP 37; O2SAT 96
[2021-09-18] MEDS: lisinopriL 10 MG TABLET PO (07:37)
[2021-09-18] MEDS: Aspirin 81 MG TAB.CHEW PO (07:37)
[2021-09-18] MEDS: Metoprolol Tartrate 25 MG TABLET PO (07:38)
[2021-09-18] MEDS: Ascorbic Acid 500 MG TABLET PO (07:38)
[2021-09-18] MEDS: Clopidogrel Bisulfate 75 MG TABLET PO (07:38)
[2021-09-18] MEDS: oxyCODONE HCl Immed Release 5 MG TABLET PO (07:38)
[2021-09-18] MEDS: Famotidine 20 MG TABLET PO (07:38)
[2021-09-18 08:16] LABS: PTT Heparin Drip 58.2 SEC (53-77.9)
--- NOTE | 2021-09-18 10:09 | P.DS_ITS ---
DS: Providers Provider Date of Service: 09/18/21 Date of admission: 09/16/21 13:36 Primary care physician: Unknown Physician Consults: 09/16/21 11:07 Consult to Cardiology Stat Consulting Provider: Gelacio Chou Reason for consultation: nstemi Has provider been notified: Yes DS: Diagnosis Discharge Diagnosis (1) HTN (hypertension): Status: Acute (2) NSTEMI (non-ST elevated myocardial infarction): Status: Acute DS: Summary Hospital Course Hospital Course: Chief Complaint: Chest pain 66 year male with no known chronic illnesses such as HTN, diabetes or CAD. He has HLD and takes Simvastatin. He? woke up around 4 am with excruciating right sided chest pain, radiating to the right shoulder. No associated shortness of breath, no n/v or daphoressis and persisted until arrived in ED. work ECG showed no acute changes, initial troponin was 117 and repeat was? 2016. Pain has improved with after nitor but now has headache. He is medically being treated with ASA, heparin, metoprolol and cardiology will arrange for cardach cath at a later time. He is otherwise hemodynamically stable.? Vaccinated for covid. Hospital course: He presented with chest pain and foud to [place] [address] however no dynamic changes on ECG. His has been treated with IV hepain, metoprolol 25 bid, Aspirin 81 mg daily, Lipitor 80 qhs, Lisinopri 10 for elevated BP that is now controlled, previously not on meds, He was loaded with plavix on 09/17 and now on 75 mg daily,. He is chest pain free and hemodynamically stable. Dr. Chou (financial secretary) recommends cardiac catherization for further risk stratification..Presently pain free and repeat ECG unchanged. Echo has been done at [place] result not yet available. He will be transfered to [facility] for cath on 09/19/21 Final diagnosis: NSTEMI HLD HTN GERD Time Spent with Patient Time attestation: Total time spent providing and/or coordinating discharge services: Discharge coordination time: Greater than 30 minutes Quality: Stroke Does the patient have a stroke diagnosis?: No Physical Exam Verdana 4l Vital Signs: Verdana 4d Verdana 4d Vital Signs: Verdana 4d Verdana 4Bd Last Vital Signs Verdana 4d Management Rep New 4d Management Rep New 4d Temp 98.6 F 09/18/21 03:54 Management Rep New 4d Pulse 52 09/18/21 03:54 Management Rep NewNew 4d Resp 18 09/18/21 03:54 BP 128/75 09/18/21 03:54 Pulse Ox 96 09/18/21 03:54 BMI result Body Mass Index 29.8 DS: Data Data Completed and Pending Labs on day of discharge: Laboratory Results - last 24 hr 09/17/21 09/18/21 14:18 07:58 PTT (Heparin Protocol) 55.7 58.2 Discharge Plan Discharge Anticipated Discharge Date/Time: 09/18/21 10:03 Patient Disposition: Xfer Acute Care Hospital Discharge Diagnosis: NSTEMI Referrals: Physician,Unknown J [Primary Care Provider] - 1 Week Discharge Medications: New heparin (porcine) 5,000 unit/mL Solution 6,700 unit IVPUSH PROTOCOL BOLUS PRN (Reason: 80 Unit/Kg - Heparin Protocol) Qty: 10 RF: 0 aspirin 81 mg Tablet,Chewable 81 mg PO DAILY Qty: 4 RF: 0 atorvastatin 80 mg Tablet 80 mg PO BEDTIME Qty: 7 RF: 0 metoprolol tartrate 25 mg Tablet 25 mg PO BID Qty: 10 RF: 0 famotidine 20 mg Tablet 20 mg PO BID Qty: 7 RF: 0 heparin(porcine) in 0.45% NaCl 25,000 unit/250 mL Parenteral Solution 25,000 unit continuous IV infusion .Q0M Qty: 6000 RF: 0 heparin (porcine) 5,000 unit/mL Solution 3,400 unit IVPUSH PROTOCOL BOLUS PRN (Reason: 40 Unit/Kg - Heparin Protocol) Qty: 10 RF: 0 clopidogrel 75 mg Tablet 75 mg PO DAILY Qty: 7 RF: 0 lisinopril 10 mg Tablet 10 mg PO DAILY Qty: 10 RF: 0 Continued ascorbic acid (vitamin C) 500 mg Tablet 500 mg PO DAILY RF: 0 Discharge Orders: Discharge Order (Routine); Ordered 09/18/21 Ordered By: Gary Bhatia Activity on Discharge: As tolerated Stand Alone Forms: Patient Portal Discharge page Care Plan Goals: Cardiac risk stratification with cath Health Concerns: Heart attack Plan of Treatment: To go to [facility] for cardiac cath and to continue cardiac medications Assessment: As above
[2021-09-18] MEDS: Heparin Sodium,Porcine/1/2NS 25,000 UNIT/250 ML IV.SOLN 9.21 UNIT IVCONT (11:14)
--- NOTE | 2021-09-18 11:19 | MHC.INPTTRAN ---
A@O Procedure explained to pt and understands and is in agreement. Heparin gtt cont 10.97u/kg/hr. Rate is 9.2ml/hr. PTT HD was 58.2 this am. Next scheduled draw will be in am. No s/s bleeding. No pain. rhythm is sinus luis. VSS ari diet. ambulates, steady. Mostly portuguese speaking. Little ethiopian thanks.
[2021-09-18 11:33] VITALS: BP 128/72; PULSE 85; RESP 17; TEMP 36.6; O2SAT 99
--- NOTE | 2021-09-18 11:35 | CA_ITS ---
Transthoracic Echocardiogram Patient (Last, First, Middle): Scotty Carpenter A Gender: Male Date of : 1955 Age: 66 Procedure Date: 09/18/2021 Procedure Type: Transthoracic Echocardiogram Location: S3W Height: 167.64 cm Weight: 83.92 kg BSA: 1.93 m2 Heart Rate: bpm BP: 128 / 75 mmHg Cleaner Assistant: KATE Singh MD: Gary Bhatia MD Sergeant Missile Crewman: Kal Campbell MD Symptoms: Nstemi Study Quality: Good ECG Rhythm: Sinus Conclusions: - 1. Normal LV systolic function with grade 1 diastolic dysfunction 2. Normal cardiac valvular Doppler 3. Normal RV systolic pressure 4. No pericardial effusion Findings Left Ventricle Normal left ventricular size, thickness, and systolic function. The visually estimated ejection fraction is between 60-65%. There is no evidence of regional wall motion abnormalities. Spectral Doppler is indicative of an impaired relaxation filling pattern. E/E prime ratio is <8, consistent with normal filling pressures. Evidence suggests grade I (mild) diastolic dysfunction. Right Ventricle Normal right ventricular cavity size and systolic function. Atria Both atria are normal in size. Interatrial shunt cannot be excluded. Aortic Valve The aortic valve structure and function is likely normal. There is no aortic valve stenosis. There is no aortic valve regurgitation. Mitral Valve Normal mitral valve structure and function. There is mild mitral annular calcification. There is trace mitral valve regurgitation. There is no mitral valve stenosis. Pulmonic Valve The pulmonic valve was not well visualized. Tricuspid Valve Likely normal tricuspid valve structure and function. There is trace tricuspid valve regurgitation. The right ventricular systolic pressure is normal. The right ventricular systolic pressure is 22 mmHg. Normal right atrial pressure. There is no evidence of pulmonary hypertension. Great Vessels All visible segments of the aorta are normal in size. The pulmonary artery was not well visualized. Small plaque is seen in the sino tubular ridge. Venous The inferior vena cava is normal in size and collapses greater than 50% with inspiration. Pericardium/Pleural There is no evidence of pericardial effusion. Prior Study Comparison No prior study available for comparison. Measurements 2D Linear Measurements IVSd: 0.97 0.6-0.9/0.6-1.0 cm LVIDd: 4.05 3.9-5.3/4.2-5.9 cm LVIDd Index: 2.10 2.4-3.2/2.2-3.1 cm/m2 LVIDs: 2.29 2.0-3.6 cm LVPWd: 0.92 0.7-1.1 cm Ao Root: 3.20 2.1-3.5 cm LA Diam: 3.20 2.7-3.8/3.0-4.0 cm LAIDs Index: 1.66 1.5-2.3 cm/m2 LV Mass: 148.88 67-162/88-224 g LV Mass Index: 77.14 43-95/49-115 g/m2 LVOT Diam: 2.10 3.0+(-)1.3 cm 2D Systolic Function EF 4C: 53.80 >55% EF 2C: 64.60 >55% EF BiP: 58.00 >55% Mitral Valve MV Pk E: 0.89 MV PK A: 1.11 MV Decel Time: 271.00 E/A: 0.80 E'Lateral: 7.72 E'Medial: 7.83 E/E' Med: 11.30 E/E' Lat: 11.50 PHT: 79.00 MVA PHT: 2.78 Decel [place]: 3.28 Aortic Valve AoV Pk Nuno: 1.51 AoV Mn Nuno: 0.97 AoV VTI: 0.29 AoV Pk Grad: 9.00 Aov Mn Grad: 4.00 JOSIE Cont.VTI: 3.55 LVOT LVOT Pk Nuno: 1.41 LVOT Mn Nuno: 0.97 LVOT VTI: 0.30 LVOT Pk Grad: 8.00 LVOT Mn Grad: 4.00 LVOT Diam: 2.10 LVOT Area: 3.46 Diastolic Function MV Pk E: 0.89 MV Pk A: 1.11 E/A: 0.80 E'Medial: 7.83 E/E' Med: 11.30 E' Laterial: 7.72 E/E' Lat: 11.50 Right Ventricle TAPSE (mm): 1.87 TVS' Nuno: 14.00 Tricuspid Valve TR Pk Nuno: 2.16 TR Pk Grad: 19.00 RA Press: 3.00 RVSP: 22.00 Great Vessels Aorta Ao Root-2D: 3.20 2.0-3.7 cm Ao Asc: 3.60 2.1-3.4 cm Ao Arch: 2.90 Updated in Other Vendor System with Status of Final Kal Campbell MD electronically signed on 09/18/2021 4:30:42 PM with status of Final
--- NOTE | 2021-09-18 12:21 | MHC.CM.PN ---
PT TRANSFERRING TO [facility] FOR BLS TRANSPORT.
--- NOTE | 2021-09-18 13:10 | P.PNCA_ITS ---
Subjective Subjective Date of Service: 09/18/21 <ANY Rollins - Last Filed: 09/18/21 13:43> 09/18/21 <Kal Campbell MD - Last Filed: 09/18/21 14:59> Principal diagnosis: nstemi <ANY Rollins - Last Filed: 09/18/21 13:43> Interval history: Cardiology follow for NSTEMI. Seen at 0950. Today he reports feeling good with no chest pains, pressure. Breathing comfortable. Ate all of breakfast. Heparin drip infusion. Arrangements for [facility] tx to be made. <MARCELINO Rollins - Last Filed: 09/18/21 13:43> Review of Systems Review of Systems as above <ANY Rollins - Last Filed: 09/18/21 13:43> Yes all other systems are reviewed and are negative <ANY Rollins - Last Filed: 09/18/21 13:43> Physical Exam Vital Signs: Last Vital Signs Temp 97.8 F 09/18/21 11:33 Pulse 85 09/18/21 11:33 Resp 17 09/18/21 11:33 BP 128/72 09/18/21 11:33 Pulse Ox 99 09/18/21 11:33 BMI result Body Mass Index 29.8 <ANY Rollins - Last Filed: 09/18/21 13:43> Const General: cooperative, healthy appearing, no acute distress, alert and awake <ANY Rollins - Last Filed: 09/18/21 13:43> Orientation/consciousness: patient oriented x3 <ANY Rollins - Last Filed: 09/18/21 13:43> HENMT Head: Yes normal to inspection <ANY Rollins - Last Filed: 09/18/21 13:43> Neck Neck: Yes normal visual inspection and Yes no JVD <ANY Rollins - Last Filed: 09/18/21 13:43> Resp Effort & Inspection: normal respiratory effort, able to speak in complete sentences and not labored <ANY Rollins - Last Filed: 09/18/21 13:43> Auscultation: clear to auscultation bilaterally, no crackles, no rales, no rhonchi and no wheezes <MARCELINO Rollins - Last Filed: 09/18/21 13:43> Cardio Jugular venous distension: JVD present <MARCELINO RollinsC - Last Filed: 09/18/21 13:43> Palpation: normal PMI <Akua Vaughan NPC - Last Filed: 09/18/21 13:43> Rate: regular rate <Akua Vaughan NPC - Last Filed: 09/18/21 13:43> Rhythm: regular rhythm <Akua Vaughan NP - Last Filed: 09/18/21 13:43> Heart sounds: S1 normal heart sound present and S2 normal heart sound present <MARCELINO Rollins - Last Filed: 09/18/21 13:43> Peripheral pulses: Peripheral pulses 2+ throughout <Akua Vaughan NP - Last Filed: 09/18/21 13:43> GI Inspection: Yes normal to inspection <Akua Vaughan NPC - Last Filed: 09/18/21 13:43> Neuro General: patient oriented x3 <MARCELINO Rollins - Last Filed: 09/18/21 13:43> Extrem General: Yes normal to inspection and No edema <MARCELINO Rollins - Last Filed: 09/18/21 13:43> Objective Labs and Meds Result diagrams: : 09/16/21 15:18 09/16/21 14:19 <Akua Vaughan NP - Last Filed: 09/18/21 13:43> Lab results: Laboratory Results - last 24 hr 09/17/21 09/18/21 14:18 07:58 PTT (Heparin Protocol) 55.7 58.2 <Akua Vaughan NP - Last Filed: 09/18/21 13:43> ECG Attestation: I personally reviewed and interpreted this ECG as follows: <MARCELINO Rollins - Last Filed: 09/18/21 13:43> Progress Note: A&P Assessment and plan (1) NSTEMI (non-ST elevated myocardial infarction): Status: Acute <ANY Rollins - Last Filed: 09/18/21 13:43> Assessment and Plan: Admit with chest pain. [place] [id number]. EKG with T wave inversions leads I, aVL. Given Plavix load and now on 75mg daily. Was started on Heparin drip, aspirin, high dose atorvastatin, Metoprolol and then Lisinopril for elevated BP. Echo completed this am, report not available ye t. Pt is feeling good without any recurrent CP. [place] [facility] [place] gave [place]. Plan is for transfer today and cardiac cath tomorrow with Dr Chou. No contrast allergy. Cr normal. Pt aware of plan and agreeable. Hospitalist informed. [facility] [place] call here when bed is available. Continue current med mgt. Tele monitoring. <ANY Rollins - Last Filed: 09/18/21 13:43> Admit with chest pain. [place] [id number]. EKG with T wave inversions leads I, aVL. Given Plavix load and now on 75mg daily. Was started on Heparin drip, aspirin, high dose atorvastatin, Metoprolol and then Lisinopril for elevated BP. Echo completed this am, report not available yet. Pt is feeling good without any recurrent CP. Called [facility] and gave report. Plan is for transfer today and cardiac cath tomorrow with Dr Chou. No contrast allergy. Cr normal. Pt aware of plan and agreeable. Hospitalist informed. [facility] [place] call here when bed is available. Continue current med mgt. Tele monitoring. Patient seen and examined. Case discussed with Akua Vaughan. Patient currently not having any chest pain. Continue current medication including IV heparin drip. Being transferred to [facility] for cardiac catheterization. Findings were discussed with help of spanish interpreter including the need for cardiac catheterization including risk, benefits, alternatives 2nd open to procedure P understands agrees. Echocardiogram was reviewed once is been completed. <Kal Campbell MD - Last Filed: 09/18/21 14:59> Fall Risk Details Current Medications: Current Medications Acetaminophen (Acetaminophen 325 Mg Tablet) 650 mg PO Q6H PRN PRN Reason: Pain, Mild (Pain Scale 1-3) Ascorbic Acid (Ascorbic Acid 500 Mg Tablet) 500 mg PO DAILY [facility] Last Admin: 09/18/21 07:38 Dose: 500 mg Documented by: Aspirin (Aspirin 81 Mg Tab.Chew) 81 mg PO DAILY [facility] Last Admin: 09/18/21 07:37 Dose: 81 mg Documented by: Atorvastatin Calcium (Atorvastatin Calcium 80 Mg Tablet) 80 mg PO BEDTIME [facility] Last Admin: 09/17/21 19:44 Dose: 80 mg Documented by: Clopidogrel Bisulfate (Clopidogrel Bisulfate 75 Mg Tablet) 75 mg PO DAILY [facility] Last Admin: 09/18/21 07:38 Dose: 75 mg Documented by: Famotidine (Famotidine 20 Mg Tablet) 20 mg PO BID [facility] Last Admin: 09/18/21 07:38 Dose: 20 mg Documented by: Heparin Sodium (Porcine) (Heparin Sodium,Porcine 5,000 Unit/Ml Vial) 6,700 unit IVPUSH PROTOCOL BOLUS PRN; Protocol PRN Reason: 80 unit/kg - Heparin Protocol Heparin Sodium (Porcine) (Heparin Sodium,Porcine 5,000 Unit/Ml Vial) 3,400 unit IVPUSH PROTOCOL BOLUS PRN; Protocol PRN Reason: 40 unit/kg - Heparin Protocol Heparin Sodium/Sodium Chloride () 25,000 unit in 250 mls @ 0 mls/hr IVCONT .Q0M [facility]; Protocol Last Admin: 09/18/21 11:14 Dose: 10.97 units/kg/hr, 9.21 mls/hr Documented by: Lisinopril (Lisinopril 10 Mg Tablet) 10 mg PO DAILY [facility]; Protocol Last Admin: 09/18/21 07:37 Dose: 10 mg Documented by: Magnesium Hydroxide (Milk Of Magnesia 30 Ml Oral.Susp) 30 ml PO DAILY PRN PRN Reason: Constipation Melatonin (Melatonin 3 Mg Tablet) 6 mg PO BEDTIME PRN PRN Reason: Insomnia Metoprolol Tartrate (Metoprolol Tartrate 25 Mg Tablet) 25 mg PO BID [facility]; Protocol Last Admin: 09/18/21 07:38 Dose: 25 mg Documented by: Ondansetron HCl (Ondansetron Hcl 4 Mg/2 Ml Vial) 4 mg IVPUSH Q8H PRN PRN Reason: Nausea and Vomiting Oxycodone HCl (Oxycodone Hcl Immed Release 5 Mg Tablet) 5 mg PO Q6H PRN PRN Reason: Pain, Severe (Pain Scale 7-10) Last Admin: 09/18/21 07:38 Dose: 5 mg Documented by: Pharmacy Consult (Consult Rx Perform Med Rec) 1 each MISCELLANE ONCE PRN PRN Reason: Consult order Sodium Chloride (0.9 % Sodium Chloride Flush 3 Ml Syringe) 3 ml IVFLUSH QSHIFT [facility] Last Admin: 09/18/21 07:37 Dose: 3 ml Documented by: <ANY Rollins - Last Filed: 09/18/21 13:43> Time Spent With Patient Time: Total time spent is greater than 50% in coordination of care (as documented) at patient's floor/unit and/or counseling patient: <ANY Rollins - Last Filed: 09/18/21 13:43> Time with patient: 25 - 35 minutes <ANY Rollins - Last Filed: 09/18/21 13:43> Progress Note: Quality Stroke Does the patient have a stroke diagnosis?: No <ANY Rollins - Last Filed: 09/18/21 13:43> Procedures Date of Service Date of Service: 09/18/21 <ANY Rollins - Last Filed: 09/18/21 13:43>
[2021-09-18 16:00] VITALS: BP 122/59; PULSE 54; RESP 18; TEMP 36.7; O2SAT 98
== END 2021-09-18 16:30 | disposition short-term general hospital (02) | DRG 282 ==
LOC: HO.ED 08:21 → HO.EDOVER 13:46 → HO.S3 19:52
PROVIDERS: Internal Medicine Cardiovascular Disease; Admitting Provider Internal Medicine; Emergency Provider Internal Medicine; Visit Provider Internal Medicine
DX: I21.4 Non-ST elevation (NSTEMI) myocardial infarction (principal); K21.9 Gastro-esophageal reflux disease without esophagitis; I10 Essential (primary) hypertension; E78.5 Hyperlipidemia, unspecified; G44.40 Drug-induced headache, not elsewhere classified, not intractable; T46.3X5A Adverse effect of coronary vasodilators, initial encounter; Y92.239 Unspecified place in hospital as the place of occurrence of the external cause; Z20.822 Contact with and (suspected) exposure to COVID-19; Z87.891 Personal history of nicotine dependence; Z79.02 Long term (current) use of antithrombotics/antiplatelets; Z79.82 Long term (current) use of aspirin; Z79.899 Other long term (current) drug therapy
CPT/HCPCS: 36415; 71045; 80048; 80053; 80061; 83880; 84484; 85025; 85027; 85379; 85610; 85730; 87635; 93005; 93306; 96365; 96366; 96375; 96376; 99285; 99291

== ENCOUNTER 2022-04-30 23:57 | Emergency (ER) | payer OTHER, SELFPAY ==
--- NOTE | ~2022-04-30 | CT_ITS ---
EXAMINATION: CT HEAD WITHOUT CONTRAST CLINICAL INFORMATION: Dizziness COMPARISON: None TECHNIQUE: Contiguous axial imaging was performed from the skull base to vertex without intravenous administration of contrast. This CT examination was performed using dose optimization techniques as appropriate, variously including the following: *Automated exposure control *Adjustment of mA and/or kV according to patient size (this includes techniques or standardized protocols for targeted exams where dose is matched to indication/reason for exam; i.e. extremities or head) *Use of iterative reconstruction technique DLP: 664 mGy-cm FINDINGS: There is no evidence of acute intracranial hemorrhage or territorial infarction. No abnormal mass-effect or midline shift is seen. Evangelista to white matter differentiation is well preserved. No extra-axial fluid collections are identified. The ventricles are normal in size. There is no abnormal attenuation within the brain parenchyma. The osseous structures and soft tissues are normal. The mastoid air cells and visualized portions of the paranasal sinuses are well-aerated. CT/CT head/brain wo IV con IMPRESSION: No acute intracranial pathology.
--- NOTE | 2022-04-30 23:58 | ECG_ITS ---
Test Reason : HYPERTENSION Blood Pressure : / mmHG Vent. Rate : 050 BPM Atrial Rate : 050 BPM P-R Int : 178 ms QRS Dur : 092 ms QT Int : 410 ms P-R-T Axes : 032 019 063 degrees QTc Int : 373 ms Sinus bradycardia Otherwise normal ECG When compared with ECG of 17-SEP-2021 07:42, T wave inversion no longer evident in Lateral leads Referred By: Randa Allen Electronically Signed By:ANTONINO CROCKER
[2022-05-01 00:09] VITALS: BP 189/83; PULSE 55; RESP 18; TEMP 37; O2SAT 98; BMI 29.0
--- NOTE | 2022-05-01 00:51 | ED_ITS ---
HPI - General Adult General Chief complaint: General Medical Stated complaint: high BP, dizzy, nausea Time Seen by Provider: 04/30/22 23:58 Source: patient, family and site interpreter Mode of arrival: ambulatory History of Present Illness HPI narrative: 67-year-old male with history of hypertension, and STEMI, presents with complaints of feeling dizzy (vertigo with room spinning) that was associated with diaphoresis and subsequent nausea. He denies any fever, chills, shortness of breath, chest pain/palpitations and states that at this time of interview he is no longer dizzy or sweaty but still has some mild nausea and was noted to have an episode of vomiting in the waiting room. He denies any speech/visual/auditory changes and denies any unilateral numbness/tingling/weakness. Patient has taken all of his medications today, is currently on aspirin/ Plavix. Related Data Home Medications Medication Instructions Recorded Confirmed ascorbic acid (vitamin C) 500 mg 500 mg PO DAILY 09/16/21 09/16/21 tablet Previous Rx's Medication Instructions Recorded aspirin 81 mg chewable tablet 81 mg PO DAILY #4 tabs 09/18/21 atorvastatin 80 mg tablet 80 mg PO BEDTIME #7 tabs 09/18/21 clopidogrel 75 mg tablet 75 mg PO DAILY #7 tabs 09/18/21 famotidine 20 mg tablet 20 mg PO BID #7 tabs 09/18/21 heparin (porcine) 25,000 unit/250 25,000 unit (250 mL) continuous IV 09/18/21 mL in 0.45 % sodium chloride IV infusion .Q0M #6,000 mL soln heparin (porcine) 5,000 unit/mL 3,400 unit (0.68 mL) IVPUSH 09/18/21 injection solution PROTOCOL BOLUS PRN 40 Unit/Kg - Heparin Protocol #10 mL heparin (porcine) 5,000 unit/mL 6,700 unit (1.34 mL) IVPUSH 09/18/21 injection solution PROTOCOL BOLUS PRN 80 Unit/Kg - Heparin Protocol #10 mL lisinopril 10 mg tablet 10 mg PO DAILY #10 tabs 09/18/21 metoprolol tartrate 25 mg tablet 25 mg PO BID #10 tabs 09/18/21 Allergies Allergy/AdvReac Type Severity Reaction Status Date / Time No Known Allergies Allergy Unverified 05/12/20 19:53 [No Known Allergies*] Review of Systems Review of Systems: Pertinent positives and negatives as stated in HPI 10 point review of systems is otherwise negative. [facility] Past Medical History Source: nursing notes reviewed Medical History Depression with anxiety GERD (gastroesophageal reflux disease) HTN (hypertension) Social History Social History Household Members: None Housing: Apartment Do you presently have visiting nurse or other home services: No Alcohol intake: current Patient Tobacco Use Status: Former Tobacco user Quit Date: 30 years ago Tobacco use type: Cigarette Advance Directives: No Advance Directives Information Provided: No Current occupational status: retired Physical Exam ED Vital Signs: Vital Signs - 24 hr 05/01/22 00:09 05/01/22 01:57 Temperature 98.6 F 98.0 F Pulse Rate 55 52 Respiratory Rate 18 16 Blood Pressure 189/83 H 153/85 H Pulse Oximetry 98 Oxygen Delivery Method Room Air Room Air BMI result Body Mass Index 29.0 VITAL SIGNS: Reviewed. GENERAL: Well developed, well nourished, in no acute distress. HEAD: Normocephalic/atraumatic EYES: PERRLA, EOMI EARS: Ext canals without abnormality NOSE: Nares patent bilateral OROPHARYNX: no oral lesions noted, posterior pharynx clear NECK: Supple, no adenopathy LUNGS: Good inspiratory effort with right basilar rales appreciated but no r honchi/wheezing, and no tachypnea noted. SpO2<98> CARDIOVASCULAR: Regular rate and rhythm without noted murmurs, no JVD or lower extremity edema. ABDOMEN: Soft, non-tender, non-distended with bowel sounds. MUSCULOSKELETAL: No tenderness, deformities, or effusions noted on gross inspection. EXTREMITIES: No cyanosis, clubbing or edema. SKIN: Inspection of the skin reveals no rashes NEUROLOGIC: Alert and oriented x 4. Strength and sensation to light touch were grossly intact x 4, no facial asymmetry, no pronator drift, cranial nerves 2-12 are grossly intact and cerebellar testing is without deficit. Course Course Course Narrative: 67-year-old male with history and clinical presentation suggestive of possible cardiac or neuro etiology. However, there are no focal deficits, symptoms have resolved but as patient is on D AP will proceed with head CT to ensure no occult bleed and lab work is pending. EKG does not show any acute changes. Review of all investigations negative for acute findings. Serial troponins are undetectable, EKG does not show any acute changes and CT of the head is otherwise benign. Patient has had complete resolution of all symptoms and states that he is feeling much better. All results were discussed with him at bedside and he is otherwise stable for discharge to home. Medical Decision Making Lab Data Result diagrams: 05/01/22 00:52 05/01/22 00:52 Labs: Lab Results 05/01/22 05/01/22 05/01/22 Range/Units 00:52 00:52 00:52 WBC 5.9 (4.8-10.8) X10*3/uL RBC 4.08 L (4.60-5.80) X10*6/uL Hgb 11.5 L (14.0-18.0) g/dl Hct 35.8 L (42.0-52.0) % MCV 87.7 (80.0-98.0) fL MCH 28.2 (27.0-33.0) pg MCHC 32.1 (31.0-36.0) g/dl RDW 14.6 (11.0-16.0) % Plt Count 179 (160-400) X10*3/uL MPV 11.2 (9.4-12.4) fL Immature Gran % (Auto) 0.2 (0.0-0.4) % Neut % (Auto) 57.7 (45-73) % Lymph % (Auto) 30.5 (20-40) % [place] % (Auto) 8.2 (2-11) % Eos % (Auto) 2.7 (0-4) % Baso % (Auto) 0.7 (0-2) % Lymph # (Auto) 1.8 (1.2-4.9) X10*3/uL [place] # (Auto) 0.5 (0.1-1.2) X10*3/uL Eos # (Auto) 0.2 (0.0-0.4) X10*3/uL Baso # (Auto) 0.0 (0.0-0.2) X10*3/uL Abs Immat Gran (auto) 0.01 (0.00-0.03) X10*3/uL Absolute Neuts (auto) 3.4 (2.0-8.3) x10*3/uL Absolute Nucleated RBC 0.000 (0.0-0.012) X10*3/uL Nucleated RBC % (auto) 0.0 (0.0-0.2) /100WBC PT (10.0-13.1) SEC INR (0.9-1.1) Sodium 142 (135-145) mmol/L Potassium 4.0 (3.3-5.1) mmol/L Chloride 107 (96-108) mmol/L Carbon Dioxide 23 (22-29) mmol/L Anion Gap 16 (12-20) BUN 26 H D (9-16) mg/dL Creatinine 0.94 (0.5-1.4) mg/dL Estim Creat Clear Calc 75.4 Estimated GFR > 60 Random Glucose 110 (60-115) mg/dL Calcium 8.9 (8.4-10.2) mg/dL Total Bilirubin 0.8 (0.0-1.0) mg/dL AST 18 D (5-37) U/L ALT 19 (0-40) U/L Alkaline Phosphatase 60 (39-117) U/L Troponin I High Sens (<3.5-35.0) ng/L B-Natriuretic Peptide (<100) pg/mL Total Protein 6.7 (6.5-8.0) g/dL Albumin 4.0 (3.5-5.0) g/dL Urine Color Urine Appearance Urine pH (5.0-9.0) Ur Specific Cameron (1.005-1.025) Urine Protein (Neg-Trace) mg/dL Urine Glucose (UA) (Negative) mg/dL Urine Ketones (Negative) mg/dL Urine Blood (Negative) Urine Nitrite (Negative) Ur Leukocyte Esterase (Negative) COVID-19 (OBI) Negative (Negative) COVID-19 Clin Com See Note 05/01/22 05/01/22 05/01/22 Range/Units 00:52 00:52 01:07 WBC (4.8-10.8) X10*3/uL RBC (4.60-5.80) X10*6/uL Hgb (14.0-18.0) g/dl Hct (42.0-52.0) % MCV (80.0-98.0) fL MCH (27.0-33.0) pg MCHC (31.0-36.0) g/dl RDW (11.0-16.0) % Plt Count (160-400) X10*3/uL MPV (9.4-12.4) fL Immature Gran % (Auto) (0.0-0.4) % Neut % (Auto) (45-73) % Lymph % (Auto) (20-40) % [place] % (Auto) (2-11) % Eos % (Auto) (0-4) % Baso % (Auto) (0-2) % Lymph # (Auto) (1.2-4.9) X10*3/uL [place] # (Auto) (0.1-1.2) X10*3/uL Eos # (Auto) (0.0-0.4) X10*3/uL Baso # (Auto) (0.0-0.2) X10*3/uL Abs Immat Gran (auto) (0.00-0.03) X10*3/uL Absolute Neuts (auto) (2.0-8.3) x10*3/uL Absolute Nucleated RBC (0.0-0.012) X10*3/uL Nucleated RBC % (auto) (0.0-0.2) /100WBC PT 10.7 (10.0-13.1) SEC INR 0.9 (0.9-1.1) Sodium (135-145) mmol/L Potassium (3.3-5.1) mmol/L Chloride (96-108) mmol/L Carbon Dioxide (22-29) mmol/L Anion Gap (12-20) BUN (9-16) mg/dL Creatinine (0.5-1.4) mg/dL Estim Creat Clear Calc Estimated GFR Random Glucose (60-115) mg/dL Calcium (8.4-10.2) mg/dL Total Bilirubin (0.0-1.0) mg/dL AST (5-37) U/L ALT (0-40) U/L Alkaline Phosphatase (39-117) U/L Troponin I High Sens < 3.5 D (<3.5-35.0) ng/L B-Natriuretic Peptide 31 (<100) pg/mL Total Protein (6.5-8.0) g/dL Albumin (3.5-5.0) g/dL Urine Color Yellow Urine Appearance Clear Urine pH 6.0 (5.0-9.0) Ur Specific Cameron 1.025 (1.005-1.025) Urine Protein Negative (Neg-Trace) mg/dL Urine Glucose (UA) Negative (Negative) mg/dL Urine Ketones Negative (Negative) mg/dL Urine Blood Negative (Negative) Urine Nitrite Negative (Negative) Ur Leukocyte Esterase Negative (Negative) COVID-19 (OBI) (Negative) COVID-19 Clin Com 05/01/22 Range/Units 03:08 WBC (4.8-10.8) X10*3/uL RBC (4.60-5.80) X10*6/uL Hgb (14.0-18.0) g/dl Hct (42.0-52.0) % MCV (80.0-98.0) fL MCH (27.0-33.0) pg MCHC (31.0-36.0) g/dl RDW (11.0-16.0) % Plt Count (160-400) X10*3/uL MPV (9.4-12.4) fL Immature Gran % (Auto) (0.0-0.4) % Neut % (Auto) (45-73) % Lymph % (Auto) (20-40) % [place] % (Auto) (2-11) % Eos % (Auto) (0-4) % Baso % (Auto) (0-2) % Lymph # (Auto) (1.2-4.9) X10*3/uL [place] # (Auto) (0.1-1.2) X10*3/uL Eos # (Auto) (0.0-0.4) X10*3/uL Baso # (Auto) (0.0-0.2) X10*3/uL Abs Immat Gran (auto) (0.00-0.03) X10*3/uL Absolute Neuts (auto) (2.0-8.3) x10*3/uL Absolute Nucleated RBC (0.0-0.012) X10*3/uL Nucleated RBC % (auto) (0.0-0.2) /100WBC PT (10.0-13.1) SEC INR (0.9-1.1) Sodium (135-145) mmol/L Potassium (3.3-5.1) mmol/L Chloride (96-108) mmol/L Carbon Dioxide (22-29) mmol/L Anion Gap (12-20) BUN (9-16) mg/dL Creatinine (0.5-1.4) mg/dL Estim Creat Clear Calc Estimated GFR Random Glucose (60-115) mg/dL Calcium (8.4-10.2) mg/dL Total Bilirubin (0.0-1.0) mg/dL AST (5-37) U/L ALT (0-40) U/L Alkaline Phosphatase (39-117) U/L Troponin I High Sens < 3.5 (<3.5-35.0) ng/L B-Natriuretic Peptide (<100) pg/mL Total Protein (6.5-8.0) g/dL Albumin (3.5-5.0) g/dL Urine Color Urine Appearance Urine pH (5.0-9.0) Ur Specific Cameron (1.005-1.025) Urine Protein (Neg-Trace) mg/dL Urine Glucose (UA) (Negative) mg/dL Urine Ketones (Negative) mg/dL Urine Blood (Negative) Urine Nitrite (Negative) Ur Leukocyte Esterase (Negative) COVID-19 (OBI) (Negative) COVID-19 Clin Com ECG Data Attestation: I personally reviewed and interpreted this ECG as follows: Prior ECG tracings: available for review Interpretation: Sinus bradycardia, HR -50, no STEMI, FL/QRS/QTC are within normal limits. Discharge Plan Discharge Clinical Impression: Vertigo Patient Disposition: Home, Self-Care Instructions: Dizziness (ED), Vertigo (ED) Additional Instructions: 1. Reanudar todos los medicamentos caseros seg?n lo prescrito. 2. Llame al consultorio de orta cardi?logo y/o orta proveedor de atenci?n primaria para programar citas para parish reevaluaci?n y un manejo ambulatorio adicional. No dude en regresar a la monica de emergencias si los s?ntomas empeoran. 1. Resume all home medications as prescribed. 2. Please call the office of your billet assembler and/or your primary care provider to set up appointments for re-evaluation and further outpatient management. Do not hesitate to return to the emergency room for any worsening symptoms. Prescriptions: No Action ascorbic acid (vitamin C) 500 mg Tablet 500 mg PO DAILY atorvastatin 80 mg Tablet 80 mg PO BEDTIME Qty: 7 0RF clopidogrel 75 mg Tablet 75 mg PO DAILY Qty: 7 0RF famotidine 20 mg Tablet 20 mg PO BID Qty: 7 0RF lisinopril 10 mg Tablet 10 mg PO DAILY Qty: 10 0RF Protocol: Hold for SBP< HOLD for SBP < : 90 aspirin 81 mg Tablet,Chewable 81 mg PO DAILY Qty: 4 0RF heparin (porcine) 5,000 unit/mL Solution 6,700 unit IVPUSH PROTOCOL BOLUS PRN (Reason: 80 Unit/Kg - Heparin Protocol) Qty: 10 0RF Rx Instructions: Heparin protocol heparin (porcine) 5,000 unit/mL Solution 3,400 unit IVPUSH PROTOCOL BOLUS PRN (Reason: 40 Unit/Kg - Heparin Protocol) Qty: 10 0RF Rx Instructions: follow protocol metoprolol tartrate 25 mg Tablet 25 mg PO BID Qty: 10 0RF Protocol: Hold for SBP/HR < HOLD for SBP < : 90 HOLD for HR < : 60 heparin(porcine) in 0.45% NaCl 25,000 unit/250 mL Parenteral Solution 25,000 unit continuous IV infusion .Q0M Qty: 6000 0RF Referrals: Nelida Whitlock RECORDAK OPERATOR [Primary Care Provider] - Print Language: Chinese
[2022-05-01 00:57] LABS: MANUAL DIFF FLAG NO
[2022-05-01 00:59] LABS: Basophils Percent Auto 0.7 % (0-2); Eosinophils Absolute Auto 0.2 X10*3/uL (0.0-0.4); Eosinophils Percent Auto 2.7 % (0-4); Hematocrit 35.8 % (42.0-52.0); Hemoglobin 11.5 g/dl (14.0-18.0); Imm Gran Abs Auto 0.01 X10*3/uL (0.00-0.03); Imm Gran Pct Auto 0.2 % (0.0-0.4); Lymphocytes Absolute Auto 1.8 X10*3/uL (1.2-4.9); Lymphocytes Percent Auto 30.5 % (20-40); Mean Corpuscular HGB Conc 32.1 g/dl (31.0-36.0); Mean Corpuscular Hemoglobin 28.2 pg (27.0-33.0); Mean Corpuscular Volume 87.7 fL (80.0-98.0); Mean Platelet Volume 11.2 fL (9.4-12.4); Monocytes Absolute Auto 0.5 X10*3/uL (0.1-1.2); Monocytes Percent Auto 8.2 % (2-11); Neutrophils Absolute Auto 3.4 x10*3/uL (2.0-8.3); Neutrophils Percent Auto 57.7 % (45-73); Platelet Count 179 X10*3/uL (160-400); Red Blood Count 4.08 X10*6/uL (4.60-5.80); Red Cell Distribution Width 14.6 % (11.0-16.0); White Blood Count 5.9 X10*3/uL (4.8-10.8)
[2022-05-01 01:04] LABS: INTERNATIONAL NORM RATIO 0.9 (0.9-1.1); Prothrombin Time 10.7 SEC (10.0-13.1)
[2022-05-01 01:15] LABS: Appearance Urine Clear; Color Urine Yellow; Glucose Urine UA Negative (Negative); Leukocyte Esterase Urine Negative (Negative); Nitrite Urine Negative (Negative); Specific Gravity - Urine 1.025 (1.005-1.025); Urine Blood Negative (Negative); Urine Ketones Negative (Negative); Urine Protein Negative (Neg-Trace)
[2022-05-01 01:18] LABS: COVID-19 Test Negative (Negative)
[2022-05-01 01:26] LABS: Alanine Aminotransferase 19 U/L (0-40); Alkaline Phosphatase 60 U/L (39-117); Anion Gap 16 (12-20); Aspartate Amino Transferase 18 U/L (5-37); Bilirubin Total 0.8 mg/dL (0.0-1.0); Blood Urea Nitrogen 26 mg/dL (9-16); Calcium 8.9 mg/dL (8.4-10.2); Carbon Dioxide 23 mmol/L (22-29); Chloride 107 mmol/L (96-108); Creatinine Clr Calc Pharmacy 75.4; Estimated Glomerular Filt Rate > 60; Glucose Random 110 mg/dL (60-115); Sodium 142 mmol/L (135-145); Total Protein 6.7 g/dL (6.5-8.0)
[2022-05-01 01:28] LABS: B Type Natriuretic Peptide 31 pg/mL (<100); Troponin-I High Sensitivity < 3.5 ng/L (<3.5-35.0)
[2022-05-01] MEDS: hydroCHLOROthiazide 25 MG TABLET PO (01:40)
[2022-05-01 01:57] VITALS: BP 153/85; PULSE 52; RESP 16; TEMP 36.7
[2022-05-01 03:31] LABS: Troponin-I High Sensitivity < 3.5 ng/L (<3.5-35.0)
[2022-05-01 04:00] VITALS: BP 154/82; PULSE 50; RESP 16; TEMP 36.8; O2SAT 98
== END 2022-05-01 04:54 | disposition home or self-care (01) ==
PROVIDERS: Emergency Provider Student in an Organized Health Care Education/Training Program; PCP Nurse Practitioner Acute Care
DX: R42 Dizziness and giddiness (principal); I10 Essential (primary) hypertension; R06.02 Shortness of breath; Z20.822 Contact with and (suspected) exposure to COVID-19; Z79.899 Other long term (current) drug therapy; Z87.891 Personal history of nicotine dependence
CPT/HCPCS: 36415; 70450; 80053; 81003; 83880; 84484; 85025; 85610; 87635; 93005; 99284

== ENCOUNTER 2023-03-17 01:30 | Emergency (ER) | payer OTHER, SELFPAY ==
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
[2023-03-17 01:38] VITALS: BP 148/88; BP 160/90; PULSE 63; PULSE 73; RESP 16; TEMP 36.6; O2SAT 96; BMI 29.0
[2023-03-17 01:48] VITALS: BP 160/90; PULSE 63; RESP 16; TEMP 36.6; O2SAT 96
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
== END 2023-03-17 03:25 | disposition home or self-care (01) ==
PROVIDERS: Emergency Provider Internal Medicine
DX: Z04.1 Encounter for examination and observation following transport accident (principal); M54.2 Cervicalgia; M25.562 Pain in left knee
CPT/HCPCS: 73564; 99283; 99284